=== PATIENT | male | born 1955 | race Caucasian/White ===

== ENCOUNTER 2021-03-07 20:13 | Emergency (ER) | payer BC, MEDICARE ==
--- NOTE | 2021-03-07 21:10 | ED ---
General Adult HPI - General Stated complaint: ETOH Time Seen by Provider: 03/07/21 20:36 - History of Present Illness Initial comments: 65-year-old male with a past history of diabetes mellitus, hypertension presents to the emergency room for a chief complaint of alcohol intoxication. Patient was brought in by the police. Patient was found in his yard sleeping and his neighbors called the police. The police did not feel comfortable not having him evaluated so brought him to the emergency room. Patient is alert and oriented. Patient states he just wants to go home.Patient has no other complaints at this time including shortness of breath, chest pain, abdominal pain, nausea or vomiting, headache, or visual changes. - Related Data Home Medications Medication Instructions Recorded Confirmed No Known Home Medications 03/07/21 03/07/21 Allergies Allergy/AdvReac Type Severity Reaction Status Date / Time ALFRED Inhibitors Allergy Swelling Verified 03/07/21 20:55 Review of Systems ROS Statement: Those systems with pertinent positive or pertinent negative responses have been documented in the HPI. ROS Other: All systems not noted in ROS Statement are negative. 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 - sees at [facility], psoriasis History of Any Multi-Drug Resistant Organisms: None Reported Past Surgical History: No Surgical Hx Reported Additional Past Surgical History / Comment(s): vastectomy with reversal Past Anesthesia/Blood Transfusion Reactions: No Reported Reaction Past Psychological History: No Psychological Hx Reported Past Alcohol Use History: Abuse, Daily - Past Family History Sister(s) Family Medical History: Cancer Additional Family Medical History / Comment(s): breast ca both sister General Exam General appearance: alert, in no apparent distress Head exam: Present: atraumatic, normocephalic, normal inspection Eye exam: Present: normal appearance, PERRL, EOMI. Absent: scleral icterus ENT exam: Present: normal exam, mucous membranes moist Neck exam: Present: normal inspection, full ROM. Absent: tenderness Respiratory exam: Present: normal lung sounds bilaterally. Absent: respiratory distress, wheezes Cardiovascular Exam: Present: regular rate, normal rhythm, normal heart sounds Neurological exam: Present: alert, oriented X3, normal gait Psychiatric exam: Present: normal affect, normal mood. Absent: depressed, homicidal ideation, suicidal ideation Course Vital Signs 08/27/21 20:41 Temperature 98.2 F Pulse Rate 113 H Respiratory 20 Rate Blood Pressure 141/84 O2 Sat by Pulse 96 Oximetry Medical Decision Making - Medical Decision Making vitals are stable. Patient somewhat tachycardic likely related to acute alcohol intoxication. Patient is well-appearing. He is alert and oriented. He has a normal gait. He does not want any further workup. Patient is requesting discharge home. He is denying any complaints. He does have a safe ride home. His family members coming to get him. He can return for any worsening symptoms and she is aware of. Disposition Clinical Impression: Alcoholic intoxication Disposition: HOME SELF-CARE Condition: Good Instructions (If sedation given, give patient instructions): Alcohol Intoxication (ED) Additional Instructions: Follow-up with your doctor in one to 2 days. Return to the emergency room for any worsening symptoms Is patient prescribed a controlled substance at d/c from ED?: No Referrals: Pan Ashraf DO [Primary Care Provider] - 1-2 days Time of Disposition: 21:14
[2021-03-07 21:11] VITALS: BP 141/84; PULSE 113; RESP 20; TEMP 98.2
== END 2021-03-07 21:39 | disposition home or self-care (01) ==
LOC: EC 20:13
DX: F10.129 Alcohol abuse with intoxication, unspecified (principal); E11.9 Type 2 diabetes mellitus without complications; I10 Essential (primary) hypertension; Y90.9 Presence of alcohol in blood, level not specified
CPT/HCPCS: 82075; 99284

== ENCOUNTER 2021-12-15 19:43 | Emergency (ER) | payer BC, OTHER ==
[2021-12-15 20:35] VITALS: RESP 16; TEMP 97.7
--- NOTE | 2021-12-15 20:44 | XR ---
EXAMINATION TYPE: XR shoulder complete RT DATE OF EXAM: 12/15/2021 COMPARISON: NONE HISTORY: Fall. Pain TECHNIQUE: 3 views FINDINGS: There is comminuted fracture of the right humeral neck. Fracture appears acute. There is al so periarticular ossification. The scapula is intact. AC joint is intact. IMPRESSION: Acute comminuted humeral neck fracture. No dislocation.
--- NOTE | 2021-12-15 21:10 | ED ---
Upper Extremity HPI - General Chief Complaint: Extremity Injury, Upper Stated Complaint: Fall Time Seen by Provider: 12/15/21 20:25 Source: patient Mode of arrival: EMS Limitations: no limitations - History of Present Illness Initial Comments: 66-year-old male with past history of daily alcohol abuse presents emergency department after he was found outside in a flower bed. Stating that he had fallen and had been laying outside all day. Patient states that he fell yesterday. He admits that he drinks every day. Patient appears to have injury to his right shoulder. EMS concern for dislocation. Patient is neurovascularly intact. States this is his dominant arm. Admits to only minimal pain. Patient requesting an enema workup at this time. He denies any head injury. No confusion. No other alleviating, precipitating or modifying factors - Related Data Home Medications Medication Instructions Recorded Confirmed No Known Home Medications 03/07/21 03/07/21 Allergies Allergy/AdvReac Type Severity Reaction Status Date / Time ALFRED Inhibitors Allergy Swelling Verified 03/07/21 20:55 Review of Systems ROS Statement: Those systems with pertinent positive or pertinent negative responses have been documented in the HPI. ROS Other: All systems not noted in ROS Statement are negative. 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 - sees at [facility], psoriasis History of Any Multi-Drug Resistant Organisms: None Reported Past Surgical History: No Surgical Hx Reported Additional Past Surgical History / Comment(s): vastectomy with reversal Past Anesthesia/Blood Transfusion Reactions: No Reported Reaction Past Psychological History: No Psychological Hx Reported Smoking Status: Current every day smoker Past Alcohol Use History: Abuse, Daily Past Drug Use History: None Reported - Past Family History Sister(s) Family Medical History: Cancer Additional Family Medical History / Comment(s): breast ca both sister General Exam Limitations: no limitations General appearance: alert, in no apparent distress Head exam: Present: atraumatic, normocephalic, normal inspection Eye exam: Present: normal appearance, PERRL, EOMI. Absent: scleral icterus, conjunctival injection, periorbital swelling Neck exam: Present: normal inspection. Absent: tenderness, meningismus, lymphadenopathy Extremities exam: Present: other (redness over right anterior shoulder. swelling to the right shoulder joint. Patient has intact motor function in the median, radial, ulnar and AIN distributions. Intact sensation in median, radial and ulnar nerve. 2+ DP and PT pulses) Course Vital Signs 12/15/21 12/15/21 20:24 20:35 Temperature 97.7 F Pulse Rate 97 Respiratory 16 16 Rate Blood Pressure 104/76 123/81 O2 Sat by Pulse 99 Oximetry Medical Decision Making - Medical Decision Making On arrival patient was placed into room 17. Thorough history and physical exam was performed. Patient neurovascularly intact. X-ray is performed of the right shoulder which demonstrates acute comminuted humeral neck fracture. Spoke with Dr. Arellano. Patient can be discharged home in a sling. [facility] for further treatment options. Patient agreed to this. He called his to come pick him up. Patient discharged in stable condition Disposition Clinical Impression: ETOH abuse, Right humeral fracture Disposition: HOME SELF-CARE Condition: Stable Instructions (If sedation given, give patient instructions): Proximal Humerus Fracture (ED) Additional Instructions: You need to follow up with the orthopedic doctors for possible surgical options. Return for any new or worsening symptoms Is patient prescribed a controlled substance at d/c from ED?: No Referrals: Pan Ashraf DO [Primary Care Provider] - 1-2 days Ovidio Arellano MD [Medical Doctor] - 1-2 days Time of Disposition: 21:11
[2021-12-15 21:21] VITALS: BP 123/81; PULSE 97
== END 2021-12-15 21:30 | disposition home or self-care (01) ==
LOC: EC 19:43
DX: S42.211A Unspecified displaced fracture of surgical neck of right humerus, initial encounter for closed fracture (principal); E11.9 Type 2 diabetes mellitus without complications; I10 Essential (primary) hypertension; F17.200 Nicotine dependence, unspecified, uncomplicated; F10.10 Alcohol abuse, uncomplicated; Z88.8 Allergy status to other drugs, medicaments and biological substances; W19.XXXA Unspecified fall, initial encounter
CPT/HCPCS: 82075; 99284

== ENCOUNTER 2023-08-08 16:32 | Emergency (ER) | payer MEDICARE ==
[2023-08-08 16:47] VITALS: TEMP 99.7
[2023-08-08] MEDS ORDERED: SODIUM CHLORIDE 0.9% 500 ML 500 ML IV ONE (17:00)
[2023-08-08 17:53] LABS: Appearance,Urine Clear (Clear); Basophils % (A) 0 %; Bilirubin,Urine Negative (Negative); Blood,Urine Negative (Negative); Color,Urine Yellow; Eosinophils # (A) 0.1 k/uL (0-0.7); Eosinophils % (A) 1 %; Glucose,Urine (UA) 4+ (Negative); HCT 36.2 % (39.0-53.0); HGB 12.1 gm/dL (13.0-17.5); Ketones,Urine Negative (Negative); Leukocyte Esterase,Urine Negative (Negative); Lymphocytes # (A) 0.7 k/uL (1.0-4.8); Lymphocytes % (A) 7 %; MCH 32.5 pg (25.0-35.0); MCHC 33.6 g/dL (31.0-37.0); MCV 96.9 fL (80.0-100.0); Mean Platelet Volume 7.5; Monocytes # (A) 0.9 k/uL (0-1.0); Monocytes % (A) 8 %; Neutrophils # (A) 8.9 k/uL (1.3-7.7); Neutrophils % (A) 83 %; Nitrite,Urine Negative (Negative); PH, Urine 5.5 (5.0-8.0); Platelet Count 381 k/uL (150-450); Protein,Urine Trace (Negative); RBC 3.73 m/uL (4.30-5.90); RDW 12.1 % (11.5-15.5); Specific Gravity,Urine 1.036 (1.001-1.035); Urobilinogen,Urine <2.0 mg/dL (<2.0); WBC 10.8 k/uL (3.8-10.6)
--- NOTE | 2023-08-08 17:58 | CT ---
EXAMINATION TYPE: CT brain cspine wo con CT DLP: 1401.1 mGycm, Automated exposure control for dose reduction was used. DATE OF EXAM: 08/08/2023 5:36 PM COMPARISON: None. CLINICAL INDICATION:Male, 67 years old with history of trauma; Fall. Poor historian. TECHNIQUE: Brain: Multiple axial CT images of the brain were obtained without IV contrast. Cspine: Axial CT images from the skull base to the inferior aspect of T2 we obtained without intraven ous contrast. Coronal and sagittal reformatted images were also reviewed. FINDINGS: Brain: Extra-axial spaces: There are multiple extra-axial fluid collections identified. Left cerebral convex ity mixed density subdural hematoma is identified measuring up to 0.2 cm. No significant associated m ass effect is appreciated in this region. Additional extra axial blood product are seen layering venancio g the left for him and falx. Lentiform shaped right-sided parietal extra-axial collection is identified and measures 9 mm in depth . No significant mass effect is appreciated in this area. Of note, a subtle nondisplaced fracture is identified in the parietal calvarium in this region (see arrow) The ventricular system is within normal limits. Multiple areas of hypoattenuation noted in the subcortical white matter, likely related to chronic sk in small vessel disease. Left posterior and right lateral scalp edema. The paranasal sinuses are well aerated. The orbital contents are intact. Cervical spine: Fracture: None. Osseous structures: Moderate multilevel degenerative disc changes are appreciated. Vertebral alignment: Within normal limits. Spinal canal/Neural Foramina: Disc osteophyte complexes creating up to moderate spinal canal narrowin g, most pronounced at C3-C4 level Neck soft tissues: Prevertebral soft tissues are within normal limits. Other: The airway is patent. The lung apices are clear. IMPRESSION: CT brain: 1. Right parietal epidural hematoma with minimally displaced overlying calvarial fracture. No signifi cant mass effect. 2. Left cerebral convexity subdural hematoma with extension along the tentorium. No significant midli ne shift or mass effect. CT cervical spine: 1. No evidence of cervical spine fracture. 2. Moderate multilevel degenerative disc disease. Critical findings were called to and discussed with ordering provider Dr. Snyder on 07/31/[address] Orta
[2023-08-08 18:02] LABS: INR 0.9 (<1.2); Partial Thromboplastin Time 24.2 sec (22.0-30.0); Prothrombin Time 10.5 sec (10.0-12.5)
[2023-08-08 18:05] LABS: ALT 21 U/L (4-49); AST 22 U/L (17-59); African American GFR (CKD) >90 (>60 ml/min/1.73 sqM); Albumin 3.6 g/dL (3.5-5.0); Alcohol <10 mg/dL; Alkaline Phosphatase 124 U/L (38-126); Anion Gap 5 mmol/L; Blood Urea Nitrogen 21 mg/dL (9-20); Calcium 8.6 mg/dL (8.4-10.2); Carbon Dioxide 25 mmol/L (22-30); Chloride 100 mmol/L (98-107); Creatine Kinase 57 U/L (55-170); Glucose 284 mg/dL (74-99); Non-African American GFR(CKD) 90 (>60 ml/min/1.73 sqM); Potassium 4.4 mmol/L (3.5-5.1); Sodium 130 mmol/L (137-145); Total Bilirubin 0.4 mg/dL (0.2-1.3); Total Protein 6.8 g/dL (6.3-8.2)
[2023-08-08 18:06] LABS: Amphetamine Screen,Urine Not Detected (NotDetected); Barbiturate Screen,Urine Not Detected (NotDetected); Benzodiazepines Screen,Urine Not Detected (NotDetected); Cocaine Screen,Urine Not Detected (NotDetected); Methadone Screen, Urine Not Detected (NotDetected); Opiate Screen,Urine Not Detected (NotDetected); Oxycodone Screen, Urine Not Detected (NotDetected); Phencyclidine Screen,Urine Not Detected (NotDetected); Tricyclic Antidepressant,Urine Not Detected (NotDetected); Urn Cannabinoid Scrn Not Detected (NotDetected)
--- NOTE | 2023-08-08 18:41 | ED ---
Fall HPI - General Chief Complaint: Fall Stated Complaint: fall Time Seen by Provider: 08/08/23 16:40 Source: EMS Mode of arrival: EMS - History of Present Illness Initial Comments: 67-year-old male with past medical history of diabetes, daily alcohol abuse who presents to the emergency department with multiple falls. EMS was called today after the patient had a fall in his front yard. It was witnessed by his ex- . The patient denies sustaining any injuries. There was no report of any head injury. EMS found that the household demonstrated signs that the patient had frequent falls. States that there was old blood dried on the sprague. Patient does have avulsion injuries to multiple fingers on his left hand. There is also some scabbing to the occiput with dried blood. Patient denies any neck pain however he is in a c-collar. It is reported that the patient is a daily drinker. He is supposed to be on medications for diabetes however is medically noncompliant. Daughters are at bedside and states that he has had numerous falls over the past 2 weeks. The patient denies any pain and is adamantly asking to go home - Related Data Home Medications Medication Instructions Recorded Confirmed No Known Home Medications 03/07/21 03/07/21 Allergies Allergy/AdvReac Type Severity Reaction Status Date / Time ALFRED Inhibitors Allergy Swelling Verified 03/07/21 20:55 Review of Systems ROS Statement: Those systems with pertinent positive or pertinent negative responses have been documented in the HPI. ROS Other: All systems not noted in ROS Statement are negative. 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 - sees at [facility], psoriasis History of Any Multi-Drug Resistant Organisms: None Reported Past Surgical History: No Surgical Hx Reported Additional Past Surgical History / Comment(s): vastectomy with reversal Past Anesthesia/Blood Transfusion Reactions: No Reported Reaction Past Psychological History: No Psychological Hx Reported Smoking Status: Current every day smoker Past Alcohol Use History: Abuse, Daily Past Drug Use History: None Reported - Past Family History Sister(s) Family Medical History: Cancer Additional Family Medical History / Comment(s): breast ca both sister General Exam Limitations: altered mental status (poor historian) General appearance: alert, in no apparent distress Head exam: Present: other (Hematoma with central abrasion with dried blood located over left occiput) Eye exam: Present: normal appearance, PERRL, EOMI. Absent: scleral icterus, conjunctival injection, periorbital swelling ENT exam: Present: normal exam, mucous membranes moist Neck exam: Present: other (C-collar in place). Absent: tenderness Respiratory exam: Present: normal lung sounds bilaterally. Absent: respiratory distress, wheezes, rales, rhonchi, stridor Cardiovascular Exam: Present: regular rate, normal rhythm, normal heart sounds. Absent: systolic murmur, diastolic murmur, rubs, gallop, clicks GI/Abdominal exam: Present: soft, normal bowel sounds. Absent: distended, tenderness, guarding, rebound, rigid Extremities exam: Present: other (Patient has visible traumatic injury to the digits on his left hand. All 5 digits have hematoma with some avulsion to the third, fourth and fifth digits. Multiple healing scabs on the fifth digit with some erythema) Back exam: Present: normal inspection Neurological exam: Present: alert Psychiatric exam: Present: anxious Skin exam: Present: warm, dry, intact, normal color. Absent: rash Course Vital Signs 08/08/23 08/08/23 16:35 18:43 Temperature 99.7 F H Pulse Rate 101 H 93 Respiratory 18 16 Rate Blood Pressure 149/91 141/80 O2 Sat by Pulse 99 95 Oximetry - Reevaluation(s) Reevaluation #1: called [facility] for transfer - must call back for acceptance 08/08/23 18:07 Reevaluation #2: Dr. Webber returns call - patient accepted at [facility] 08/08/23 19:17 Medical Decision Making - Medical Decision Making Was pt. sent in by a medical professional or institution (, PA, [facility], urgent care, hospital, or fdc...) When possible be specific @ -No Did you speak to anyone other than the patient for history (EMS, parent, family, police, friend...)? What history was obtained from this source @ -EMS and daughters Did you review nursing and triage notes (agree or disagree)? Why? @ -I reviewed and agree with nursing and triage notes Were old charts reviewed (outside hosp., previous admission, EMS record, old EKG, old radiological studies, urgent care reports/EKG's, fdc records)? Report findings @ -No old charts were reviewed Differential Diagnosis (chest pain, altered mental status, abdominal pain women, abdominal pain men, vaginal bleeding, weakness, fever, dyspnea, syncope, headache, dizziness, GI bleed, back pain, seizure, CVA, palpatations, mental health, musculoskeletal)? @ -Differential Altered Mental Status: Hypoglycemia, DKA, hypercapnia, ETOH, overdose, CO poisoning, trauma, myxedema coma, HTN encephalopathy, infection, encephalitis, psychosis, intercranial hemorrhage, hepatic encephalopathy, meningitis, CVA, this is not meant to be an all-inclusive list EKG interpreted by me (3pts min.). @ Not Done X-rays interpreted by me (1pt min.). @ -Yes and demonstrates no acute fractures CT interpreted by me (1pt min.). @ -Yes and demonstrates an epidural and a subdural hematoma U/S interpreted by me (1pt. min.). @ -None done What testing was considered but not performed or refused? (CT, X-rays, U/S, labs)? Why? @ -None What meds were considered but not given or refused? Why? @ -None Did you discuss the management of the patient with other professionals (professionals i.e. , PA, ANVILSMITH, lab, RT, psych nurse, social welfare administrator, production or plant engineer, teacher, foreign policy officer, director of casework services)? Give summary @ -Spoke with Dr. Webber at [facility] who accepts transfer Was smoking cessation discussed for >3mins.? @ -No Was critical care preformed (if so, how long)? @ -Yes, 40 minutes for intracranial hemorrhage management Were there social determinants of health that impacted care today? How? (Homelessness, low income, unemployed, alcoholism, drug addiction, trans portation, low edu. Level, literacy, decrease access to med. care, skilled nursing, rehab)? @ -No Was there de-escalation of care discussed even if they declined (Discuss DNR or withdrawal of care, Hospice)? DNR status @ -No What co-morbidities impacted this encounter? (DM, HTN, Smoking, COPD, CAD, Cancer, CVA, ARF, Chemo, Hep., AIDS, mental health diagnosis, sleep apnea, morbid obesity)? @Alcohol abuse Was patient admitted / discharged? Hospital course, mention meds given and route, prescriptions, significant lab abnormalities, going to OR and other pertinent info. @ -Transfer to [facility] for head injury with skull fracture, epidural hematoma and subdural hematoma Undiagnosed new problem with uncertain prognosis? @ -Yes Drug Therapy requiring intensive monitoring for toxicity (Heparin, Nitro, Insulin, Cardizem)? @ -No Were any procedures done? @ -No Diagnosis/symptom? @ -Acute/subacute fall, acute skull fracture, acute epidural hematoma, acute subdural hematoma, alcohol abuse Acute, or Chronic, or Acute on Chronic? @ -Acute Uncomplicated (without systemic symptoms) or Complicated (systemic symptoms)? @ -Complicated Side effects of treatment? @ -No Exacerbation, Progression, or Severe Exacerbation? @ -No Poses a threat to life or bodily function? How? (Chest pain, [place], [place], pneumonia, PE, COPD, DKA, ARF, appy, cholecystitis, CVA, Diverticulitis, Homicidal, Suicidal, threat to staff... and all critical care pts) @ -Yes patient has acute intracranial hemorrhage - Lab Data Result diagrams: 08/08/23 17:34 08/08/23 17:34 Lab Results 08/08/23 08/08/23 08/08/23 Range/Units 17:34 17:34 17:34 WBC 10.8 H (3.8-10.6) k/uL RBC 3.73 L (4.30-5.90) m/uL Hgb 12.1 L (13.0-17.5) gm/dL Hct 36.2 L (39.0-53.0) % MCV 96.9 (80.0-100.0) fL MCH 32.5 (25.0-35.0) pg MCHC 33.6 (31.0-37.0) g/dL RDW 12.1 (11.5-15.5) % Plt Count 381 (150-450) k/uL MPV 7.5 Neutrophils % 83 % Lymphocytes % 7 % Monocytes % 8 % Eosinophils % 1 % Basophils % 0 % Neutrophils # 8.9 H (1.3-7.7) k/uL Lymphocytes # 0.7 L (1.0-4.8) k/uL Monocytes # 0.9 (0-1.0) k/uL Eosinophils # 0.1 (0-0.7) k/uL Basophils # 0.0 (0-0.2) k/uL PT 10.5 (10.0-12.5) sec INR 0.9 (<1.2) APTT 24.2 (22.0-30.0) sec Sodium (137-145) mmol/L Potassium (3.5-5.1) mmol/L Chloride (98-107) mmol/L Carbon Dioxide (22-30) mmol/L Anion Gap mmol/L BUN (9-20) mg/dL Creatinine (0.66-1.25) mg/dL Est GFR (CKD-EPI)AfAm (>60 ml/min/1.73 sqM) Est GFR (CKD-EPI)NonAf (>60 ml/min/1.73 sqM) Glucose (74-99) mg/dL Calcium (8.4-10.2) mg/dL Total Bilirubin (0.2-1.3) mg/dL AST (17-59) U/L ALT (4-49) U/L Alkaline Phosphatase (38-126) U/L Ammonia (<30) umol/L Creatine Kinase (55-170) U/L Troponin I (0.000-0.034) ng/mL Total Protein (6.3-8.2) g/dL Albumin (3.5-5.0) g/dL Urine Color Urine Appearance (Clear) Urine pH (5.0-8.0) Ur Specific [place] (1.001-1.035) Urine Protein (Negative) Urine Glucose (UA) (Negative) Urine Ketones (Negative) Urine Blood (Negative) Urine Nitrite (Negative) Urine Bilirubin (Negative) Urine Urobilinogen (<2.0) mg/dL Ur Leukocyte Esterase (Negative) Urine Opiates Screen Not Detected (NotDetected) Ur Oxycodone Screen Not Detected (NotDetected) Urine Methadone Screen Not Detected (NotDetected) Ur Barbiturates Screen Not Detected (NotDetected) U Tricyclic Antidepress Not Detected (NotDetected) Ur Phencyclidine Scrn Not Detected (NotDetected) Ur Amphetamines Screen Not Detected (NotDetected) U Methamphetamines Scrn Not Detected (NotDetected) U Benzodiazepines Scrn Not Detected (NotDetected) Urine Cocaine Screen Not Detected (NotDetected) U Marijuana (THC) Screen Not Detected (NotDetected) Serum Alcohol mg/dL Influenza Type A (PCR) (Not Detectd) Influenza Type B (PCR) (Not Detectd) RSV (PCR) (Not Detectd) SARS-CoV-2 (PCR) (Not Detectd) 08/08/23 08/08/23 08/08/23 Range/Units 17:34 17:34 17:34 WBC (3.8-10.6) k/uL RBC (4.30-5.90) m/uL Hgb (13.0-17.5) gm/dL Hct (39.0-53.0) % MCV (80.0-100.0) fL MCH (25.0-35.0) pg MCHC (31.0-37.0) g/dL RDW (11.5-15.5) % Plt Count (150-450) k/uL MPV Neutrophils % % Lymphocytes % % Monocytes % % Eosinophils % % Basophils % % Neutrophils # (1.3-7.7) k/uL Lymphocytes # (1.0-4.8) k/uL Monocytes # (0-1.0) k/uL Eosinophils # (0-0.7) k/uL Basophils # (0-0.2) k/uL PT (10.0-12.5) sec INR (<1.2) APTT (22.0-30.0) sec Sodium 130 L (137-145) mmol/L Potassium 4.4 (3.5-5.1) mmol/L Chloride 100 (98-107) mmol/L Carbon Dioxide 25 (22-30) mmol/L Anion Gap 5 mmol/L BUN 21 H (9-20) mg/dL Creatinine 0.87 (0.66-1.25) mg/dL Est GFR (CKD-EPI)AfAm >90 (>60 ml/min/1.73 sqM) Est GFR (CKD-EPI)NonAf 90 (>60 ml/min/1.73 sqM) Glucose 284 H (74-99) mg/dL Calcium 8.6 (8.4-10.2) mg/dL Total Bilirubin 0.4 (0.2-1.3) mg/dL AST 22 (17-59) U/L ALT 21 (4-49) U/L Alkaline Phosphatase 124 (38-126) U/L Ammonia (<30) umol/L Creatine Kinase 57 (55-170) U/L Troponin I <0.012 (0.000-0.034) ng/mL Total Protein 6.8 (6.3-8.2) g/dL Albumin 3.6 (3.5-5.0) g/dL Urine Color Yellow Urine Appearance Clear (Clear) Urine pH 5.5 (5.0-8.0) Ur Specific [place] 1.036 H (1.001-1.035) Urine Protein Trace H (Negative) Urine Glucose (UA) 4+ H (Negative) Urine Ketones Negative (Negative) Urine Blood Negative (Negative) Urine Nitrite Negative (Negative) Urine Bilirubin Negative (Negative) Urine Urobilinogen <2.0 (<2.0) mg/dL Ur Leukocyte Esterase Negative (Negative) Urine Opiates Screen (NotDetected) Ur Oxycodone Screen (NotDetected) Urine Methadone Screen (NotDetected) Ur Barbiturates Screen (NotDetected) U Tricyclic Antidepress (NotDetected) Ur Phencyclidine Scrn (NotDetected) Ur Amphetamines Screen (NotDetected) U Methamphetamines Scrn (NotDetected) U Benzodiazepines Scrn (NotDetected) Urine Cocaine Screen (NotDetected) U Marijuana (THC) Screen (NotDetected) Serum Alcohol <10 mg/dL Influenza Type A (PCR) (Not Detectd) Influenza Type B (PCR) (Not Detectd) RSV (PCR) (Not Detectd) SARS-CoV-2 (PCR) (Not Detectd) 08/08/23 08/08/23 Range/Units 17:34 17:34 WBC (3.8-10.6) k/uL RBC (4.30-5.90) m/uL Hgb (13.0-17.5) gm/dL Hct (39.0-53.0) % MCV (80.0-100.0) fL MCH (25.0-35.0) pg MCHC (31.0-37.0) g/dL RDW (11.5-15.5) % Plt Count (150-450) k/uL MPV Neutrophils % % Lymphocytes % % Monocytes % % Eosinophils % % Basophils % % Neutrophils # (1.3-7.7) k/uL Lymphocytes # (1.0-4.8) k/uL Monocytes # (0-1.0) k/uL Eosinophils # (0-0.7) k/uL Basophils # (0-0.2) k/uL PT (10.0-12.5) sec INR (<1.2) APTT (22.0-30.0) sec Sodium (137-145) mmol/L Potassium (3.5-5.1) mmol/L Chloride (98-107) mmol/L Carbon Dioxide (22-30) mmol/L Anion Gap mmol/L BUN (9-20) mg/dL Creatinine (0.66-1.25) mg/dL Est GFR (CKD-EPI)AfAm (>60 ml/min/1.73 sqM) Est GFR (CKD-EPI)NonAf (>60 ml/min/1.73 sqM) Glucose (74-99) mg/dL Calcium (8.4-10.2) mg/dL Total Bilirubin (0.2-1.3) mg/dL AST (17-59) U/L ALT (4-49) U/L Alkaline Phosphatase (38-126) U/L Ammonia <9 (<30) umol/L Creatine Kinase (55-170) U/L Troponin I (0.000-0.034) ng/mL Total Protein (6.3-8.2) g/dL Albumin (3.5-5.0) g/dL Urine Color Urine Appearance (Clear) Urine pH (5.0-8.0) Ur Specific [place] (1.001-1.035) Urine Protein (Negative) Urine Glucose (UA) (Negative) Urine Ketones (Negative) Urine Blood (Negative) Urine Nitrite (Negative) Urine Bilirubin (Negative) Urine Urobilinogen (<2.0) mg/dL Ur Leukocyte Esterase (Negative) Urine Opiates Screen (NotDetected) Ur Oxycodone Screen (NotDetected) Urine Methadone Screen (NotDetected) Ur Barbiturates Screen (NotDetected) U Tricyclic Antidepress (NotDetected) Ur Phencyclidine Scrn (NotDetected) Ur Amphetamines Screen (NotDetected) U Methamphetamines Scrn (NotDetected) U Benzodiazepines Scrn (NotDetected) Urine Cocaine Screen (NotDetected) U Marijuana (THC) Screen (NotDetected) Serum Alcohol mg/dL Influenza Type A (PCR) Not Detected (Not Detectd) Influenza Type B (PCR) Not Detected (Not Detectd) RSV (PCR) Not Detected (Not Detectd) SARS-CoV-2 (PCR) Not Detected (Not Detectd) Disposition Clinical Impression: Fall, ETOH abuse, Epidural hematoma, Cranial facial fractures, Subdural hematoma Disposition: OTHER INSTITUTION NOT DEFINED Condition: Serious Is patient prescribed a controlled substance at d/c from ED?: No Referrals: Pan Ashraf DO [Primary Care Provider] - 1-2 days Time of Disposition: 19:17 Decision to Admit Reason: Admit from EC Decision Date: 08/08/23 Decision Time: 19:17 - Out of Hospital Transfer - Req. Specs Out of Hospital Transfer - Requested Specifics: Other Emergency Center ([facility])
[2023-08-08 18:50] VITALS: BP 141/80; PULSE 93; RESP 16
--- NOTE | 2023-08-08 19:19 | XR ---
EXAMINATION TYPE: XR hand complete LT DATE OF EXAM: 08/08/2023 COMPARISON: None HISTORY: Fall trauma TECHNIQUE: 3 view left hand FINDINGS: There is a subtle lucency in the distal portion middle phalanx fifth digit. This could be a fracture within a bone cyst. Advanced degenerative joint changes are in the distal fifth interphalan geal joint space. More moderate degenerative changes are in the remaining joint spaces. Patient's rin g is present during the exam. A catheter is present. Soft tissue swelling is over the wrist. Follow-up studies can be performed 7-10 days from acute trauma for continued pain. IMPRESSION: 1. Possible fracture at the distal portion middle phalanx fifth digit. 2. Advanced degenerative joint changes distal interphalangeal joint space digit. 3. Moderate degenerative joint changes remaining digits. 4. Soft tissue swelling dorsum of wrist
--- NOTE | 2023-08-08 19:21 | XR ---
EXAMINATION TYPE: XR chest 1V DATE OF EXAM: 08/08/2023 COMPARISON: 11/15/2014 INDICATION: Altered mental status pain, fall TECHNIQUE: Single frontal view of the chest is obtained. FINDINGS: The heart size is normal. The pulmonary vasculature is normal. The lungs are clear. No pneumothorax is evident. No displaced rib fractures are evident. Old fracture of the right proxima l humerus is evident IMPRESSION: 1. No acute pulmonary process.
== END 2023-08-08 20:07 | disposition other institution (70) ==
LOC: EC 16:32
DX: S02.0XXA Fracture of vault of skull, initial encounter for closed fracture (principal); S06.5X0A Traumatic subdural hemorrhage without loss of consciousness, initial encounter; S06.4X0A Epidural hemorrhage without loss of consciousness, initial encounter; F10.10 Alcohol abuse, uncomplicated; E11.9 Type 2 diabetes mellitus without complications; I10 Essential (primary) hypertension; F17.200 Nicotine dependence, unspecified, uncomplicated; Z88.8 Allergy status to other drugs, medicaments and biological substances; Z20.822 Contact with and (suspected) exposure to COVID-19; W18.30XA Fall on same level, unspecified, initial encounter; Y90.0 Blood alcohol level of less than 20 mg/100 ml
CPT/HCPCS: 99291; 96360; 36415; 80053; 82140; 82550; 84484; 85025; 85610; 85730; 81003; 80306; 87636; 73130; 71045; 72125; 70450; G0480; 80320